=== PATIENT | male | born 1965 | race Two or more races ===

== ENCOUNTER 2017-04-11 11:01 | Emergency (ER) | payer OTHER ==
[~2017-04-11] VITALS: Ht 165.1 cm; Wt 99.8 kg
[2017-04-11] MEDS ORDERED: cloNIDine HCL 0.1 MG TAB PO ONE (11:15)
[2017-04-11] MEDS ORDERED: cloNIDine HCL 0.1 MG TAB ONE (11:15)
[2017-04-11] MEDS ORDERED: METOPROLOL TARTRATE 50 MG TAB PO ONE (11:45)
[2017-04-11 13:35] VITALS: BP 183/130
[2017-04-11] MEDS ORDERED: traMADol HCL 50 MG TAB PO ONE (14:00)
== END 2017-04-11 14:11 | disposition left against medical advice (07) ==
LOC: ER 11:01
DX: S39.012A Strain of muscle, fascia and tendon of lower back, initial encounter (principal); S63.501A Unspecified sprain of right wrist, initial encounter; I10 Essential (primary) hypertension; R51 Headache; W11.XXXA Fall on and from ladder, initial encounter; Y93.89 Activity, other specified; Y92.89 Other specified places as the place of occurrence of the external cause; Y99.8 Other external cause status
CPT/HCPCS: 70450; 72110; 73110; 73130